=== PATIENT | male | born 1995 | race Caucasian/White ===

== ENCOUNTER 2018-11-08 01:50 | Emergency (ER) | payer MEDICAID, OTHER ==
[~2018-11-08] VITALS: Ht 182.9 cm; Wt 145.1 kg
[~2018-11-08 01:50] MED LIST: ALBU17AE26 IH
[2018-11-08 01:55] VITALS: BP_SYST 142
--- NOTE | 2018-11-08 01:55 | NUR ---
Patient to ER bed 8 to gown for evaluation. Side rails up.
--- NOTE | 2018-11-08 01:57 | NUR ---
ER at bedside examining patient.
--- NOTE | 2018-11-08 02:10 | NUR ---
XRAY PERFORMED AT THE BEDSIDE.
[2018-11-08 02:38] VITALS: BP_SYST 139
--- NOTE | 2018-11-08 02:38 | NUR ---
Patient given written and verbal discharge instructions by Dr Aguirre and verbalizes understanding. ER MD discussed with patient the results and treatment provided. Patient in stable condition. ID arm band removed. Rx of Doxycycline given. Patient educated on pain management and to follow up with PMD. Pain Scale 5/10. Opportunity for questions provided and answered. Medication side effect fact sheet provided.
== END 2018-11-08 02:38 | disposition home or self-care (01) ==
LOC: SED 01:50
DX: L73.8 Other specified follicular disorders (principal); J45.909 Unspecified asthma, uncomplicated; Z88.8 Allergy status to other drugs, medicaments and biological substances
CPT/HCPCS: 71045; 99283

== ENCOUNTER 2021-01-13 04:38 | Emergency (ER) | payer BC, OTHER ==
[~2021-01-13] VITALS: Ht 182.9 cm; Wt 145.1 kg
[2021-01-13 04:58] VITALS: BP_SYST 141
--- NOTE | 2021-01-13 05:04 | NUR ---
Patient ambulatoyr to bed 8 for evaluation
--- NOTE | 2021-01-13 05:11 | NUR ---
DR. PORTILLO AT BEDSIDE FOR EVALUATION.
--- NOTE | 2021-01-13 05:26 | NUR ---
PATIENT AAOX4 AND AMBULATORY FROM HOME C/O LEFT EAR PAIN X3 DAYS. STATED TAKING MOTHERS AMOXICILLIN AT HOME. STATED HE BOUGHT AN EAR KIT FROM THE STORE TO CLEAN EAR BUT NO EFFECTIVE. VSS. DENIES ANY HEARING LOSS.
--- NOTE | 2021-01-13 05:29 | NUR ---
LEFT EAR IRRIGATED AND NOTED DRIED WAXED REMOVED FROM CANAL. PT STATED HAVING POPPING NOISE IN EAR.
[2021-01-13] MEDS ORDERED: CIPR7.5D LEFT EAR (05:30)
[2021-01-13 05:35] VITALS: BP_SYST 141
--- NOTE | 2021-01-13 05:35 | NUR ---
Patient given written and verbal discharge instructions and verbalizes understanding. DR. BANDAR SERVIN MD discussed with patient the results and treatment provided. Patient in stable condition. ID arm band removed. Rx of CIPRODEX OTIC given. Patient educated on pain management and to follow up with PMD. Pain Scale 0/10. Opportunity for questions provided and answered. Medication side effect fact sheet provided.
== END 2021-01-13 05:35 | disposition home or self-care (01) ==
LOC: SED 04:38
DX: H61.22 Impacted cerumen, left ear (principal); J45.909 Unspecified asthma, uncomplicated; Z88.8 Allergy status to other drugs, medicaments and biological substances; Z79.899 Other long term (current) drug therapy
CPT/HCPCS: 99283

== ENCOUNTER 2022-07-27 13:38 | Inpatient (IN) | payer BC, OTHER ==
[~2022-07-27] VITALS: Ht 182.9 cm; Wt 188.7 kg
[~2022-07-27 13:38] MED LIST changes: +CIPR7.5D LEFT EAR
[2022-07-27] MEDS ORDERED: NACL 0.9% 2,000 ML IV ONE (15:00)
[2022-07-27] MEDS ORDERED: ACETAMINOPHEN 325 MG TABLET PO ONE (15:00)
[2022-07-27] MEDS ORDERED: ONDANSETRON HCL 4 MG/2 ML VIAL IVP ONE ×2 (15:00→17:00)
[2022-07-27] MEDS ORDERED: PANTOPRAZOLE SODIUM 40 MG/VIAL (PROTONIX) IVP ONE ×2 (15:00→18:45)
[2022-07-27 15:07] VITALS: BP_SYST 111
[2022-07-27 15:36] LABS: BILIRUBIN,URINE NEGATIVE (NEGATIVE); BLOOD, URINE 1+ (NEGATIVE); CLARITY/URINE CLEAR (CLEAR); COLOR,URINE YELLOW (YELLOW); GLUCOSE,URINE 3+ (NEGATIVE); KETONES,URINE 1+ (NEGATIVE); LEUKOCYTE ESTERASE ,URINE NEGATIVE (NEGATIVE); NITRITE, URINE NEGATIVE (NEGATIVE); PH,URINE 6.5 (5.0-8.0); PROTEIN URINE 1+ (NEGATIVE)
[2022-07-27 15:52] LABS: UROBILINOGEN,URINE >=8 (0.2-1.0)
[2022-07-27 15:53] LABS: BACTERIA,URINE FEW /HPF (None Seen); MUCUS,URINE None Seen /LPF (None Seen); RBC,URINE 0-3 /HPF (0-3); WBC,URINE 0-3 /HPF (0-3)
[2022-07-27 15:59] LABS: BASOPHILS # (AUTO) 0.1 K/uL (0.0-0.2); BASOPHILS % (AUTO) 0.5 % (0.0-2.0); EOSINOPHILS % (AUTO) 0.1 % (0.0-4.0); HEMATOCRIT 42.4 % (36-54); HEMOGLOBIN 14.7 g/dL (14.0-18.0); LYMPHOCYTES % (AUTO) 10.7 % (20.5-51.5); MEAN CORPUSCULAR HEMOGLOBIN 30 pg (27-31); MEAN CORPUSCULAR HGB CONC 35 % (32-36); MEAN CORPUSCULAR VOLUME 87 fL (79.0-98.0); MONOCYTES # (AUTO) 1.9 K/uL (0.0-1.0); MONOCYTES % (AUTO) 10.3 % (1.7-9.3); NEUTROPHILS # (AUTO) 14.5 K/uL (1.8-7.7); NEUTROPHILS % (AUTO) 78.4 % (40.0-70.0); PLATELET COUNT (AUTO) 179 K/uL (130-430); RED BLOOD CELL COUNT(AUTO) 4.89 MIL/uL (4.2-6.2); RED CELL DISTRIBUTION WIDTH 12.9 % (9.0-15.0); WHITE BLOOD COUNT (AUTO) 18.4 K/uL (4.8-10.8)
[2022-07-27 16:04] LABS: ANION GAP 10 (5-15); CALCIUM 7.7 mg/dL (8.4-11.0); CHLORIDE 92 mmol/L (98-107); CREATININE 1.28 mg/dL (0.55-1.30); GFR AFRICAN AMERICAN 88 mL/min (>90); GLUCOSE 380 mg/dL (70-99); UREA NITROGEN, BLOOD 10 mg/dL (8-21)
[2022-07-27 16:09] LABS: INR 1.1 (0.80-1.20); PROTHROMBIN TIME 11.4 SECS (9.5-12.5)
[2022-07-27 16:19] LABS: ALANINE AMINOTRANSFERASE 50 U/L (12-78); ALBUMIN 2.9 g/dL (3.4-4.8); ASPARTATE AMINOTRANSFERASE 29 U/L (10-37); TOTAL BILIRUBIN 1.3 mg/dL (0.0-1.0)
[2022-07-27] MEDS ORDERED: cefTRIAXone 2 GM VIAL ONE (16:57)
[2022-07-27] MEDS ORDERED: INSULIN REGULAR, HUMAN 10 UNITS/0.1 ML, 3 ML VIAL IVP ONE (17:00)
[2022-07-27] MEDS ORDERED: NACL 0.9% 1,000 ML IV ONE (17:00)
[2022-07-27] MEDS ORDERED: ASPIRIN 81 MG TABLET(ECOTRIN) PO ONE (17:00)
[2022-07-27] MEDS ORDERED: MORPHINE 2 MG/ML INJ. SYRINGE IVP ONE (17:00)
[2022-07-27] MEDS ORDERED: AZITHROMYCIN 500 MG in NS 250 ML IV ONE (17:00)
[2022-07-27] MEDS ORDERED: DEXTROSE 50% JECT 50 ML DISP.SYRIN IVP PRN (17:15)
[2022-07-27] MEDS ORDERED: ENOXAPARIN SODIUM 100 MG/ML SYRINGE SUBCUT ONE (17:30)
[2022-07-27] MEDS ORDERED: ENOXAPARIN SODIUM 120 MG/0.8 ML SYRINGE SUBCUT ONE (17:30)
[2022-07-27] MEDS ORDERED: AZITHROMYCIN 500 MG/VIAL (ZITHROMAX) IV ONE (17:31)
[2022-07-27 17:34] LABS: BARBITURATE, URINE NEGATIVE (NEG <=200); BENZODIAZEPINE, URINE NEGATIVE (NEG <=150); CANNABINOID, URINE POSITIVE (NEG <=50); COCAINE, URINE NEGATIVE (NEG <=150); METHAMPHETAMINES SCREEN,URINE NEGATIVE (NEG <=500); OPIATE, URINE NEGATIVE (NEG <=100); PHENCYCLIDINE SCREEN,URINE NEGATIVE (NEG <=25); UR TRICYCLIC ANTIDEPRESSANTS NEGATIVE (NEG <=300); URINE AMPHETAMINE NEGATIVE (NEG <=500); URINE METHADONE NEGATIVE (NEG <=200); URINE OXYCODONE SCREEN NEGATIVE (NEG <=100); URINE PROPOXYPHENE SCREEN NEGATIVE (NEG <=300)
[2022-07-27] MEDS ORDERED: PIPERACILLIN/TAZO 4.5 GM in NS 100 ML IV ONE (18:00)
[2022-07-27] MEDS ORDERED: IPRATROPIUM/ALBUTEROL SULFATE 3 ML AMPUL.NEB (DUONEB) INH PRN (18:45)
[2022-07-27] MEDS ORDERED: PIPERACILLIN/TAZOBACTAM 4.5 GM/VIAL (ZOSYN) IV ONE (18:50)
[2022-07-27] MEDS ORDERED: levalbuterol HCL 0.63 MG/3 ML VIAL.NEB INH ONE (18:57)
[2022-07-27] MEDS: IPRATROPIUM/ALBUTEROL SULFATE 3 ML AMPUL.NEB (DUONEB) INH SCH (19:00)
[2022-07-27 19:09] VITALS: BP_SYST 111
[2022-07-27] MEDS ORDERED: ACETAMINOPHEN 500 MG TABLET PO PRN (19:15)
[2022-07-27] MEDS ORDERED: NALOXONE HCL 0.4 MG/ML AMP (NARCAN) IVP PRN (19:15)
[2022-07-27] MEDS ORDERED: traMADol HCL HCL 50 MG TABLET (ULTRAM) PO PRN (19:15)
[2022-07-27] MEDS ORDERED: MORPHINE 4 MG INJ. 4 MG/ML VIAL IVP PRN (19:30)
[2022-07-27] MEDS ORDERED: ONDANSETRON HCL 4 MG/2 ML VIAL ONE (20:33)
[2022-07-27] MEDS: NACL 0.9% 1,000 ML IV SCH (20:40)
[2022-07-27] MEDS ORDERED: ONDANSETRON HCL 4 MG/2 ML VIAL IM PRN (21:00)
[2022-07-27] MEDS: INSULIN REGULAR, HUMAN 100 UNITS/ML, 3 ML VIAL (humuLIN R) SUBCUT PRN (21:19)
[2022-07-27] MEDS ORDERED: PANTOPRAZOLE SODIUM 40 MG/VIAL (PROTONIX) ONE (21:59)
[2022-07-27 22:00] VITALS: BP_SYST 113
[2022-07-27] MEDS: PANTOPRAZOLE SODIUM 40 MG in NS 50 ML IV SCH (22:14)
[2022-07-27 23:00] VITALS: BP_SYST 129
[2022-07-28] VITALS (24 sets, daily range): BP systolic 104–149
[2022-07-28] MEDS ORDERED: methylPREDNISolone SOD SUCC/PF 62.5 MG/ML VIAL IVP ONE (02:00)
[2022-07-28] MEDS ORDERED: LORazepam 2 MG/ML VIAL IM PRN (02:00)
[2022-07-28] MEDS: PANTOPRAZOLE SODIUM 40 MG in NS 50 ML IV SCH ×5 (02:06→21:05)
[2022-07-28] MEDS: NACL 0.9% 1,000 ML IV SCH ×3 (02:07→17:37)
[2022-07-28] MEDS ORDERED: PIPERACILLIN/TAZOBACTAM 4.5 GM/VIAL (ZOSYN) IV ONE (05:03)
[2022-07-28] MEDS: PIPERACILLIN/TAZO 4.5GM/DEX-IS 100 ML IV SCH ×3 (05:06→21:06)
[2022-07-28] MEDS ORDERED: ENOXAPARIN SODIUM 100 MG/ML SYRINGE SUBCUT SCH (06:00)
[2022-07-28] MEDS: INSULIN REGULAR, HUMAN 100 UNITS/ML, 3 ML VIAL (humuLIN R) SUBCUT PRN ×4 (06:58→20:52)
[2022-07-28] MEDS: IPRATROPIUM/ALBUTEROL SULFATE 3 ML AMPUL.NEB (DUONEB) INH SCH ×4 (07:04→19:17)
[2022-07-28 07:14] LABS: CALCIUM 7.4 mg/dL (8.4-11.0); CREATININE 1.28 mg/dL (0.55-1.30)
[2022-07-28 07:24] LABS: BASOPHILS % (AUTO) 0.2 % (0.0-2.0); HEMATOCRIT 42.1 % (36-54); HEMOGLOBIN 14.2 g/dL (14.0-18.0); LYMPHOCYTES # (AUTO) 0.5 K/uL (1.0-5.5); LYMPHOCYTES % (AUTO) 3.1 % (20.5-51.5); MEAN CORPUSCULAR HEMOGLOBIN 29 pg (27-31); MEAN CORPUSCULAR HGB CONC 34 % (32-36); MEAN CORPUSCULAR VOLUME 87 fL (79.0-98.0); MONOCYTES # (AUTO) 0.4 K/uL (0.0-1.0); MONOCYTES % (AUTO) 2.7 % (1.7-9.3); NEUTROPHILS # (AUTO) 15.7 K/uL (1.8-7.7); PLATELET COUNT (AUTO) 181 K/uL (130-430); RED BLOOD CELL COUNT(AUTO) 4.82 MIL/uL (4.2-6.2); RED CELL DISTRIBUTION WIDTH 12.9 % (9.0-15.0); WHITE BLOOD COUNT (AUTO) 16.8 K/uL (4.8-10.8)
[2022-07-28 07:32] LABS: ALBUMIN 2.5 g/dL (3.4-4.8); TOTAL BILIRUBIN 1.3 mg/dL (0.0-1.0)
[2022-07-28] MEDS ORDERED: PANTOPRAZOLE SODIUM 40 MG/VIAL (PROTONIX) IVP SCH (09:00)
[2022-07-28] MEDS: METHYLPREDNISOLONE SOD SUCC 40 MG/ML VIAL IVP SCH ×3 (11:50→23:40)
[2022-07-28] MEDS: AZITHROMYCIN 500 MG in NS 250 ML IV SCH (17:38)
[2022-07-29] VITALS (10 sets, daily range): BP systolic 102–146
[2022-07-29] MEDS: PANTOPRAZOLE SODIUM 40 MG in NS 50 ML IV SCH (02:33)
[2022-07-29] MEDS: NACL 0.9% 1,000 ML IV SCH (02:35)
[2022-07-29] MEDS: PIPERACILLIN/TAZO 4.5GM/DEX-IS 100 ML IV SCH ×3 (05:28→21:27)
[2022-07-29] MEDS: METHYLPREDNISOLONE SOD SUCC 40 MG/ML VIAL IVP SCH (05:29)
[2022-07-29 05:33] LABS: BASOPHILS % (AUTO) 0.1 % (0.0-2.0); HEMATOCRIT 40.9 % (36-54); HEMOGLOBIN 14.1 g/dL (14.0-18.0); LYMPHOCYTES # (AUTO) 1.3 K/uL (1.0-5.5); LYMPHOCYTES % (AUTO) 10.4 % (20.5-51.5); MEAN CORPUSCULAR HEMOGLOBIN 30 pg (27-31); MEAN CORPUSCULAR HGB CONC 35 % (32-36); MEAN CORPUSCULAR VOLUME 87 fL (79.0-98.0); MONOCYTES # (AUTO) 0.6 K/uL (0.0-1.0); MONOCYTES % (AUTO) 4.9 % (1.7-9.3); NEUTROPHILS # (AUTO) 10.8 K/uL (1.8-7.7); NEUTROPHILS % (AUTO) 84.6 % (40.0-70.0); PLATELET COUNT (AUTO) 209 K/uL (130-430); RED BLOOD CELL COUNT(AUTO) 4.68 MIL/uL (4.2-6.2); RED CELL DISTRIBUTION WIDTH 13.1 % (9.0-15.0); WHITE BLOOD COUNT (AUTO) 12.7 K/uL (4.8-10.8)
[2022-07-29 05:45] LABS: CALCIUM 8.3 mg/dL (8.4-11.0); CREATININE 1.15 mg/dL (0.55-1.30)
[2022-07-29 06:04] LABS: ALBUMIN 2.4 g/dL (3.4-4.8); TOTAL BILIRUBIN 0.7 mg/dL (0.0-1.0)
[2022-07-29] MEDS: INSULIN REGULAR, HUMAN 100 UNITS/ML, 3 ML VIAL (humuLIN R) SUBCUT PRN ×4 (06:05→21:31)
[2022-07-29] MEDS: IPRATROPIUM/ALBUTEROL SULFATE 3 ML AMPUL.NEB (DUONEB) INH SCH ×4 (07:38→19:29)
[2022-07-29] MEDS: metFORMIN HCL 500 MG TABLET PO SCH (17:34)
[2022-07-29] MEDS: AZITHROMYCIN 500 MG in NS 250 ML IV SCH (18:16)
[2022-07-29] MEDS ORDERED: CARVEDILOL 6.25 MG TABLET (COREG) PO SCH (21:00)
[2022-07-29] MEDS: PANTOPRAZOLE SODIUM 40 MG/VIAL (PROTONIX) IVP SCH (21:26)
[2022-07-30 00:11] VITALS: BP_SYST 122
[2022-07-30] MEDS: PIPERACILLIN/TAZO 4.5GM/DEX-IS 100 ML IV SCH ×3 (05:46→21:21)
[2022-07-30 06:50] LABS: BASOPHILS % (AUTO) 0.1 % (0.0-2.0); EOSINOPHILS % (AUTO) 0.1 % (0.0-4.0); HEMOGLOBIN 13.6 g/dL (14.0-18.0); LYMPHOCYTES # (AUTO) 3.4 K/uL (1.0-5.5); MEAN CORPUSCULAR HEMOGLOBIN 30 pg (27-31); MEAN CORPUSCULAR HGB CONC 34 % (32-36); MEAN CORPUSCULAR VOLUME 87 fL (79.0-98.0); MONOCYTES # (AUTO) 0.9 K/uL (0.0-1.0); MONOCYTES % (AUTO) 5.4 % (1.7-9.3); NEUTROPHILS # (AUTO) 12.5 K/uL (1.8-7.7); NEUTROPHILS % (AUTO) 74.4 % (40.0-70.0); PLATELET COUNT (AUTO) 259 K/uL (130-430); RED BLOOD CELL COUNT(AUTO) 4.58 MIL/uL (4.2-6.2); WHITE BLOOD COUNT (AUTO) 16.8 K/uL (4.8-10.8)
[2022-07-30] MEDS: INSULIN REGULAR, HUMAN 100 UNITS/ML, 3 ML VIAL (humuLIN R) SUBCUT PRN ×4 (06:57→21:35)
[2022-07-30 07:25] LABS: ALBUMIN 2.3 g/dL (3.4-4.8); CALCIUM 7.9 mg/dL (8.4-11.0); CREATININE 1.26 mg/dL (0.55-1.30); FREE T4 (FREE THYROXINE) 1.2 ng/dL (0.6-1.6); THYROID STIMULATING HORMONE 2.74 uIu/mL (0.34-4.82); TOTAL BILIRUBIN 0.6 mg/dL (0.0-1.0)
[2022-07-30] MEDS: IPRATROPIUM/ALBUTEROL SULFATE 3 ML AMPUL.NEB (DUONEB) INH SCH ×4 (07:27→19:38)
[2022-07-30 08:00] VITALS: BP_SYST 111
[2022-07-30] MEDS ORDERED: PANTOPRAZOLE SODIUM 40 MG/VIAL (PROTONIX) IVP SCH (09:00)
[2022-07-30] MEDS ORDERED: LOSARTAN POTASSIUM 25 MG TABLET PO SCH (09:00)
[2022-07-30] MEDS: metFORMIN HCL 500 MG TABLET PO SCH ×2 (09:03→17:07)
[2022-07-30] MEDS: PANTOPRAZOLE SODIUM 40 MG/VIAL (PROTONIX) IVP SCH ×2 (09:29→21:26)
[2022-07-30 11:38] VITALS: BP_SYST 101
[2022-07-30] MEDS: FLUCONAZOLE 200 mg/ NS 100 ML IV SCH (12:56)
[2022-07-30 15:16] VITALS: BP_SYST 111
[2022-07-30] MEDS ORDERED: PNEUMOCOCCAL 23-VAL P-SAC VAC 0.5 ML VIAL I.M. ONE (17:45)
[2022-07-30] MEDS: AZITHROMYCIN 500 MG in NS 250 ML IV SCH (18:05)
[2022-07-30 20:06] LABS: MYCOPLASMA PNEUMONIAE IgM <770 U/mL (0-769)
[2022-07-30 20:15] VITALS: BP_SYST 115
[2022-07-30] MEDS: NACL 0.9% 1,000 ML IV SCH (21:27)
[2022-07-31 02:07] VITALS: BP_SYST 98
[2022-07-31] MEDS: PIPERACILLIN/TAZO 4.5GM/DEX-IS 100 ML IV SCH ×3 (05:18→23:15)
[2022-07-31] MEDS: NACL 0.9% 1,000 ML IV SCH ×2 (06:02→15:15)
[2022-07-31] MEDS: metFORMIN HCL 500 MG TABLET PO SCH ×3 (06:33→17:21)
[2022-07-31] MEDS: INSULIN REGULAR, HUMAN 100 UNITS/ML, 3 ML VIAL (humuLIN R) SUBCUT PRN ×4 (06:33→22:01)
[2022-07-31] MEDS: IPRATROPIUM/ALBUTEROL SULFATE 3 ML AMPUL.NEB (DUONEB) INH SCH ×4 (07:22→19:24)
[2022-07-31 08:00] VITALS: BP_SYST 100
[2022-07-31 08:06] LABS: BASOPHILS % (AUTO) 0.3 % (0.0-2.0); EOSINOPHILS # (AUTO) 0.2 K/uL (0.0-0.4); EOSINOPHILS % (AUTO) 1.6 % (0.0-4.0); HEMATOCRIT 41.2 % (36-54); HEMOGLOBIN 14.1 g/dL (14.0-18.0); LYMPHOCYTES % (AUTO) 28.2 % (20.5-51.5); MEAN CORPUSCULAR HEMOGLOBIN 30 pg (27-31); MEAN CORPUSCULAR HGB CONC 34 % (32-36); MEAN CORPUSCULAR VOLUME 87 fL (79.0-98.0); MONOCYTES # (AUTO) 0.7 K/uL (0.0-1.0); NEUTROPHILS # (AUTO) 9.2 K/uL (1.8-7.7); NEUTROPHILS % (AUTO) 64.9 % (40.0-70.0); PLATELET COUNT (AUTO) 257 K/uL (130-430); RED BLOOD CELL COUNT(AUTO) 4.71 MIL/uL (4.2-6.2); RED CELL DISTRIBUTION WIDTH 12.9 % (9.0-15.0); WHITE BLOOD COUNT (AUTO) 14.1 K/uL (4.8-10.8)
[2022-07-31 08:11] LABS: CALCIUM 7.6 mg/dL (8.4-11.0); CREATININE 1.06 mg/dL (0.55-1.30)
[2022-07-31] MEDS: PANTOPRAZOLE SODIUM 40 MG/VIAL (PROTONIX) IVP SCH ×2 (08:58→21:52)
[2022-07-31] MEDS ORDERED: PNEUMOCOCCAL 23-VAL P-SAC VAC 0.5 ML VIAL I.M. ONE (10:00)
[2022-07-31 13:09] VITALS: BP_SYST 111
[2022-07-31 18:06] LABS: COCCIDIOIDES AB IGG 0.2 IV (<=0.9); COCCIDIOIDES AB IGM 0.4 IV (<=0.9)
[2022-07-31 18:19] VITALS: BP_SYST 111
[2022-07-31 19:40] VITALS: BP_SYST 126
[2022-07-31] MEDS: FLUCONAZOLE 200 mg/ NS 100 ML IV SCH (21:52)
[2022-08-01] MEDS: AZITHROMYCIN 500 MG in NS 250 ML IV SCH ×2 (00:01→17:04)
[2022-08-01 00:30] VITALS: BP_SYST 117
[2022-08-01] MEDS: PIPERACILLIN/TAZO 4.5GM/DEX-IS 100 ML IV SCH ×3 (05:40→21:50)
[2022-08-01] MEDS: NACL 0.9% 1,000 ML IV SCH (05:41)
[2022-08-01] MEDS: INSULIN REGULAR, HUMAN 100 UNITS/ML, 3 ML VIAL (humuLIN R) SUBCUT PRN ×4 (05:50→21:55)
[2022-08-01] MEDS: metFORMIN HCL 500 MG TABLET PO SCH ×3 (06:13→17:10)
[2022-08-01 08:00] VITALS: BP_SYST 114
[2022-08-01] MEDS: IPRATROPIUM/ALBUTEROL SULFATE 3 ML AMPUL.NEB (DUONEB) INH SCH ×4 (08:21→19:00)
[2022-08-01] MEDS: PANTOPRAZOLE SODIUM 40 MG TAB PO SCH (09:20)
[2022-08-01 11:29] VITALS: BP_SYST 122
[2022-08-01] MEDS: FLUCONAZOLE 200 mg/ NS 100 ML IV SCH (12:22)
[2022-08-01 15:48] VITALS: BP_SYST 128
[2022-08-01 19:00] VITALS: BP_SYST 141
[2022-08-01 20:00] VITALS: BP_SYST 141
[2022-08-02] VITALS: BP_SYST 140
[2022-08-02] MEDS: PIPERACILLIN/TAZO 4.5GM/DEX-IS 100 ML IV SCH (05:57)
[2022-08-02] MEDS: metFORMIN HCL 500 MG TABLET PO SCH ×2 (06:10→12:54)
[2022-08-02] MEDS: INSULIN REGULAR, HUMAN 100 UNITS/ML, 3 ML VIAL (humuLIN R) SUBCUT PRN ×2 (06:17→12:58)
[2022-08-02] MEDS: IPRATROPIUM/ALBUTEROL SULFATE 3 ML AMPUL.NEB (DUONEB) INH SCH ×2 (07:57→11:00)
[2022-08-02 08:02] VITALS: BP_SYST 103
[2022-08-02] MEDS: PANTOPRAZOLE SODIUM 40 MG TAB PO SCH (09:04)
[2022-08-02 11:18] VITALS: BP_SYST 108
[2022-08-02] MEDS ORDERED: METF-381 PO (12:42)
[2022-08-02] MEDS ORDERED: ZIT250 PO (12:42)
[2022-08-02] MEDS ORDERED: AZITHROMYCIN 250 MG TABLET PO ONE (12:45)
[2022-08-02 14:21] VITALS: BP_SYST 108
[2022-08-02] MEDS ORDERED: MULT-1117 PO (14:36)
[2022-08-03] MEDS ORDERED: AZITHROMYCIN 250 MG TABLET PO SCH (09:00)
== END 2022-08-02 15:10 | disposition home or self-care (01) | DRG 720 ==
LOC: SED 13:38 → SIC 17:04 → STU 07-29 10:33
PROVIDERS: ADMIT Internal Medicine; ATTEND Internal Medicine
PROC: 5A09357 Assistance with Respiratory Ventilation, Less than 24 Consecutive Hours, Continuous Positive Airway Pressure (ICD-10-PCS; principal; 2022-07-28)
PROC: 5A09357 Assistance with Respiratory Ventilation, Less than 24 Consecutive Hours, Continuous Positive Airway Pressure (ICD-10-PCS; 2022-07-29)
DX: A41.9 Sepsis, unspecified organism (principal); J96.01 Acute respiratory failure with hypoxia; N17.0 Acute kidney failure with tubular necrosis; E43 Unspecified severe protein-calorie malnutrition; J15.6 Pneumonia due to other Gram-negative bacteria; I21.A1 Myocardial infarction type 2; E87.1 Hypo-osmolality and hyponatremia; K92.0 Hematemesis; J45.901 Unspecified asthma with (acute) exacerbation; Z20.822 Contact with and (suspected) exposure to COVID-19; F17.200 Nicotine dependence, unspecified, uncomplicated; E66.01 Morbid (severe) obesity due to excess calories; R65.20 Severe sepsis without septic shock; E11.65 Type 2 diabetes mellitus with hyperglycemia; Z68.43 Body mass index [BMI] 50.0-59.9, adult; Z86.16 Personal history of COVID-19
CPT/HCPCS: 36415; 36600; 71045; 80048; 80053; 80061; 80307; 81000; 82803; 82962; 83037; 83605; 83735; 83880; 84439; 84443; 84484; 85025; 85610-TC; 85730-TC; 86635; 86738; 87040; 87070-TC; 87081; 87086; 87205-TC; 87449; 90732; 93005; 93306; 94640; 94660; 94760; 96374; 96375; 97110-GP; 97112-GP; 97116-GP; 97530-GP; 99291; C9113; G0378; J0456; J0696; J1030; J1450; J1650; J1815; J2060; J2270; J2405; J2543; J2930; J7050; J7614; Q0144

== ENCOUNTER 2022-08-17 07:54 | Inpatient (IN) | payer OTHER ==
[2022-08-17] VITALS (14 sets, daily range): BP systolic 94–122; PULSE 104–126; RESP 18–24; TEMP 97.2–98.9; O2SAT 92–98
[~2022-08-17] VITALS: Ht 182.9 cm; Wt 181.4 kg
[~2022-08-17 07:54] MED LIST changes: -CIPR7.5D LEFT EAR; +METF-381 PO; +MULT-1117 PO; +ZIT250 PO
[2022-08-17] MEDS ORDERED: NACL 0.9% 1,000 ML IV ONE ×3 (08:15→11:15)
[2022-08-17 08:56] LABS: BASOPHILS # (AUTO) 0.1 K/uL (0.0-0.2); BASOPHILS % (AUTO) 0.5 % (0.0-2.0); EOSINOPHILS # (AUTO) 0.2 K/uL (0.0-0.4); EOSINOPHILS % (AUTO) 1.3 % (0.0-4.0); HEMATOCRIT 42.5 % (36-54); HEMOGLOBIN 14.2 g/dL (14.0-18.0); LYMPHOCYTES # (AUTO) 2.7 K/uL (1.0-5.5); LYMPHOCYTES % (AUTO) 16.6 % (20.5-51.5); MEAN CORPUSCULAR HEMOGLOBIN 29 pg (27-31); MEAN CORPUSCULAR HGB CONC 34 % (32-36); MEAN CORPUSCULAR VOLUME 88 fL (79.0-98.0); MONOCYTES # (AUTO) 1.3 K/uL (0.0-1.0); MONOCYTES % (AUTO) 7.7 % (1.7-9.3); NEUTROPHILS % (AUTO) 73.9 % (40.0-70.0); PLATELET COUNT (AUTO) 262 K/uL (130-430); RED BLOOD CELL COUNT(AUTO) 4.85 MIL/uL (4.2-6.2); RED CELL DISTRIBUTION WIDTH 13.6 % (9.0-15.0); WHITE BLOOD COUNT (AUTO) 16.3 K/uL (4.8-10.8)
[2022-08-17] MEDS ORDERED: FAMO20TA8 PO (09:00)
[2022-08-17 09:05] LABS: ANION GAP 10 (5-15); CALCIUM 8.4 mg/dL (8.4-11.0); CHLORIDE 100 mmol/L (98-107); CREATININE 1.11 mg/dL (0.55-1.30); GFR AFRICAN AMERICAN 104 mL/min (>90); GLUCOSE 272 mg/dL (74-106); UREA NITROGEN, BLOOD 14 mg/dL (8-21)
[2022-08-17 09:19] LABS: ALANINE AMINOTRANSFERASE 48 U/L (12-78); ALBUMIN 3.1 g/dL (3.4-4.8); ASPARTATE AMINOTRANSFERASE 28 U/L (10-37)
[2022-08-17] MEDS ORDERED: iohexoL 350 mgI/mL, 100 ML INFUS..BTL IV ONE (09:19)
[2022-08-17 09:20] LABS: PROTHROMBIN TIME 10.6 SECS (9.5-12.5)
[2022-08-17 09:58] LABS: CREATINE KINASE MB 5.2 ng/mL (0-3.6)
[2022-08-17] MEDS ORDERED: IPRATROPIUM/ALBUTEROL SULFATE 3 ML AMPUL.NEB (DUONEB) ONE (13:16)
[2022-08-17] MEDS: PIPERACILLIN/TAZO 4.5GM/DEX-IS 100 ML IV SCH ×2 (13:40→22:00)
[2022-08-17] MEDS: IPRATROPIUM/ALBUTEROL SULFATE 3 ML AMPUL.NEB (DUONEB) INH SCH ×3 (13:55→23:26)
[2022-08-17] MEDS ORDERED: DEXTROSE 50% JECT 50 ML DISP.SYRIN IVP PRN (14:15)
[2022-08-17] MEDS ORDERED: D5W 1,000 ML IV PRN (14:15)
[2022-08-17] MEDS ORDERED: GLUCOSE (DEXTROSE) ORAL GEL -Adults PO PRN (14:15)
[2022-08-17] MEDS ORDERED: INSULIN REGULAR, HUMAN 10 UNITS/0.1 ML, 3 ML VIAL ONE (14:19)
[2022-08-17] MEDS: INSULIN REGULAR, HUMAN 100 UNITS/ML, 3 ML VIAL (humuLIN R) SUBCUT PRN ×3 (14:25→21:26)
[2022-08-17 15:24] LABS: BARBITURATE, URINE NEGATIVE (NEG <=200); BENZODIAZEPINE, URINE NEGATIVE (NEG <=150); CANNABINOID, URINE POSITIVE (NEG <=50); COCAINE, URINE NEGATIVE (NEG <=150); METHAMPHETAMINES SCREEN,URINE NEGATIVE (NEG <=500); OPIATE, URINE POSITIVE (NEG <=100); PHENCYCLIDINE SCREEN,URINE NEGATIVE (NEG <=25); UR TRICYCLIC ANTIDEPRESSANTS NEGATIVE (NEG <=300); URINE AMPHETAMINE NEGATIVE (NEG <=500); URINE METHADONE NEGATIVE (NEG <=200); URINE OXYCODONE SCREEN NEGATIVE (NEG <=100); URINE PROPOXYPHENE SCREEN NEGATIVE (NEG <=300)
[2022-08-17] MEDS ORDERED: methylPREDNISolone SOD SUCC/PF 62.5 MG/ML VIAL IVP ONE (15:45)
[2022-08-17] MEDS ORDERED: ONDANSETRON HCL 4 MG/2 ML VIAL IVP PRN ×2 (16:45→23:00)
[2022-08-17] MEDS ORDERED: KETOROLAC TROMETHAMINE 30 MG VIAL IVP PRN (17:00)
[2022-08-17] MEDS ORDERED: KETOROLAC TROMETHAMINE 15 MG VIAL ONE (17:03)
[2022-08-17] MEDS: IPRATROPIUM BROM 0.5 MG/2.5 ML VIAL.NEB (ATROVENT) INH PRN (17:12)
[2022-08-17] MEDS: ALBUTEROL SULFATE 0.083% 2.5 MG/3 ML VIAL.NEB INH PRN (17:12)
[2022-08-17] MEDS ORDERED: KETOROLAC TROMETHAMINE 15 MG VIAL IVP PRN ×2 (17:15)
[2022-08-17] MEDS: NACL 0.9% 1,000 ML IV SCH (19:33)
[2022-08-17 19:44] LABS: BASOPHILS % (AUTO) 0.3 % (0.0-2.0); EOSINOPHILS # (AUTO) 0.1 K/uL (0.0-0.4); EOSINOPHILS % (AUTO) 0.3 % (0.0-4.0); HEMATOCRIT 41.5 % (36-54); HEMOGLOBIN 13.8 g/dL (14.0-18.0); LYMPHOCYTES % (AUTO) 6.1 % (20.5-51.5); MEAN CORPUSCULAR HEMOGLOBIN 29 pg (27-31); MEAN CORPUSCULAR HGB CONC 33 % (32-36); MEAN CORPUSCULAR VOLUME 88 fL (79.0-98.0); MONOCYTES # (AUTO) 0.4 K/uL (0.0-1.0); MONOCYTES % (AUTO) 2.2 % (1.7-9.3); NEUTROPHILS # (AUTO) 14.5 K/uL (1.8-7.7); NEUTROPHILS % (AUTO) 91.1 % (40.0-70.0); PLATELET COUNT (AUTO) 225 K/uL (130-430); RED BLOOD CELL COUNT(AUTO) 4.69 MIL/uL (4.2-6.2); RED CELL DISTRIBUTION WIDTH 13.9 % (9.0-15.0)
[2022-08-17 20:16] LABS: ALBUMIN 2.9 g/dL (3.4-4.8); CALCIUM 7.9 mg/dL (8.4-11.0); CREATININE 1.14 mg/dL (0.55-1.30); PHOSPHORUS 3.6 mg/dL (2.7-4.5); TOTAL BILIRUBIN 1.3 mg/dL (0.0-1.0)
[2022-08-17] MEDS ORDERED: methylPREDNISolone SOD SUCC/PF 62.5 MG/ML VIAL IVP SCH (21:00)
[2022-08-18] VITALS (29 sets, daily range): BP systolic 115–155; PULSE 79–133; RESP 13–46; TEMP 97–98.5; O2SAT 90–98
[2022-08-18] MEDS: IPRATROPIUM/ALBUTEROL SULFATE 3 ML AMPUL.NEB (DUONEB) INH SCH ×6 (02:45→23:28)
[2022-08-18 04:41] LABS: BASOPHILS % (AUTO) 0.1 % (0.0-2.0); HEMATOCRIT 38.8 % (36-54); HEMOGLOBIN 12.8 g/dL (14.0-18.0); LYMPHOCYTES # (AUTO) 0.6 K/uL (1.0-5.5); LYMPHOCYTES % (AUTO) 6.5 % (20.5-51.5); MEAN CORPUSCULAR HEMOGLOBIN 29 pg (27-31); MEAN CORPUSCULAR HGB CONC 33 % (32-36); MEAN CORPUSCULAR VOLUME 89 fL (79.0-98.0); MONOCYTES # (AUTO) 0.1 K/uL (0.0-1.0); NEUTROPHILS # (AUTO) 8.9 K/uL (1.8-7.7); NEUTROPHILS % (AUTO) 92.4 % (40.0-70.0); PLATELET COUNT (AUTO) 212 K/uL (130-430); RED BLOOD CELL COUNT(AUTO) 4.36 MIL/uL (4.2-6.2); RED CELL DISTRIBUTION WIDTH 13.8 % (9.0-15.0); WHITE BLOOD COUNT (AUTO) 9.7 K/uL (4.8-10.8)
[2022-08-18] MEDS: PIPERACILLIN/TAZO 4.5GM/DEX-IS 100 ML IV SCH ×3 (05:06→20:27)
[2022-08-18 05:07] LABS: ALBUMIN 2.5 g/dL (3.4-4.8); CALCIUM 7.1 mg/dL (8.4-11.0); CREATININE 0.86 mg/dL (0.55-1.30); PHOSPHORUS 3.7 mg/dL (2.7-4.5); TOTAL BILIRUBIN 0.8 mg/dL (0.0-1.0)
[2022-08-18] MEDS: INSULIN REGULAR, HUMAN 100 UNITS/ML, 3 ML VIAL (humuLIN R) SUBCUT PRN ×4 (05:53→22:18)
[2022-08-18] MEDS: MULTIVITAMINS TAB 1 TABLET PO SCH (08:19)
[2022-08-18] MEDS: metFORMIN HCL 500 MG TABLET PO SCH ×2 (08:19→17:02)
[2022-08-18] MEDS: FAMOTIDINE 20 MG TABLET PO SCH ×2 (08:19→20:26)
[2022-08-18] MEDS: ENOXAPARIN SODIUM 40 MG/0.4 ML SYRINGE SUBCUT SCH (08:20)
[2022-08-18] MEDS: NACL 0.9% 1,000 ML IV SCH (08:32)
[2022-08-18] MEDS ORDERED: methylPREDNISolone SOD SUCC/PF 62.5 MG/ML VIAL IVP ONE (09:20)
[2022-08-18] MEDS ORDERED: methylPREDNISolone SOD SUCC/PF 62.5 MG/ML VIAL IVP SCH (09:30)
[2022-08-18] MEDS: IPRATROPIUM BROM 0.5 MG/2.5 ML VIAL.NEB (ATROVENT) INH PRN (12:50)
[2022-08-18] MEDS: methylPREDNISolone SOD SUCC/PF 62.5 MG/ML VIAL IVP SCH (20:25)
[2022-08-18] MEDS: LACTOBACILLUS RHAMNOSUS GG 1 CAP CAPSULE PO SCH (20:26)
[2022-08-19] VITALS (24 sets, daily range): BP systolic 109–164; PULSE 110–125; RESP 18–42; TEMP 96.6–98.7; O2SAT 90–99
[2022-08-19] MEDS: NACL 0.9% 1,000 ML IV SCH (02:28)
[2022-08-19] MEDS: IPRATROPIUM/ALBUTEROL SULFATE 3 ML AMPUL.NEB (DUONEB) INH SCH ×4 (02:35→15:53)
[2022-08-19] MEDS: INSULIN REGULAR, HUMAN 100 UNITS/ML, 3 ML VIAL (humuLIN R) SUBCUT PRN ×5 (05:36→21:38)
[2022-08-19 05:53] LABS: HEMATOCRIT 37.9 % (36-54); HEMOGLOBIN 12.3 g/dL (14.0-18.0); LYMPHOCYTES # (AUTO) 1.1 K/uL (1.0-5.5); LYMPHOCYTES % (AUTO) 6.6 % (20.5-51.5); MEAN CORPUSCULAR HEMOGLOBIN 29 pg (27-31); MEAN CORPUSCULAR HGB CONC 32 % (32-36); MEAN CORPUSCULAR VOLUME 90 fL (79.0-98.0); MONOCYTES # (AUTO) 0.5 K/uL (0.0-1.0); MONOCYTES % (AUTO) 3.1 % (1.7-9.3); NEUTROPHILS # (AUTO) 14.4 K/uL (1.8-7.7); NEUTROPHILS % (AUTO) 90.3 % (40.0-70.0); PLATELET COUNT (AUTO) 235 K/uL (130-430); RED BLOOD CELL COUNT(AUTO) 4.22 MIL/uL (4.2-6.2); WHITE BLOOD COUNT (AUTO) 15.9 K/uL (4.8-10.8)
[2022-08-19 06:46] LABS: ALBUMIN 2.7 g/dL (3.4-4.8); CREATININE 1.09 mg/dL (0.55-1.30); THYROID STIMULATING HORMONE 0.62 uIu/mL (0.34-4.82); TOTAL BILIRUBIN 0.4 mg/dL (0.0-1.0)
[2022-08-19] MEDS: metFORMIN HCL 500 MG TABLET PO SCH ×2 (08:15→17:28)
[2022-08-19] MEDS: PIPERACILLIN/TAZO 4.5GM/DEX-IS 100 ML IV SCH ×3 (08:15→21:29)
[2022-08-19] MEDS: methylPREDNISolone SOD SUCC/PF 62.5 MG/ML VIAL IVP SCH ×2 (08:16→21:31)
[2022-08-19] MEDS: MULTIVITAMINS TAB 1 TABLET PO SCH (08:21)
[2022-08-19] MEDS: LACTOBACILLUS RHAMNOSUS GG 1 CAP CAPSULE PO SCH ×2 (08:21→21:29)
[2022-08-19] MEDS: FAMOTIDINE 20 MG TABLET PO SCH ×2 (08:22→21:29)
[2022-08-19] MEDS: ENOXAPARIN SODIUM 40 MG/0.4 ML SYRINGE SUBCUT SCH (08:24)
[2022-08-19 08:48] LABS: ERYTHROCYTE SEDIMENTATION RATE 31 MM/HR (0-15)
[2022-08-19] MEDS: ALBUTEROL SULFATE 0.083% 2.5 MG/3 ML VIAL.NEB INH PRN (15:48)
[2022-08-20] VITALS (13 sets, daily range): BP systolic 131–156; PULSE 111–118; RESP 18–26; TEMP 96.4–97.3; O2SAT 94–99
[2022-08-20] MEDS: PIPERACILLIN/TAZO 4.5GM/DEX-IS 100 ML IV SCH ×3 (05:06→21:07)
[2022-08-20] MEDS: INSULIN REGULAR, HUMAN 100 UNITS/ML, 3 ML VIAL (humuLIN R) SUBCUT PRN ×4 (06:05→21:23)
[2022-08-20 07:07] LABS: BASOPHILS # (AUTO) 0.1 K/uL (0.0-0.2); BASOPHILS % (AUTO) 0.4 % (0.0-2.0); EOSINOPHILS % (AUTO) 0.1 % (0.0-4.0); HEMATOCRIT 40.5 % (36-54); HEMOGLOBIN 13.4 g/dL (14.0-18.0); LYMPHOCYTES # (AUTO) 1.1 K/uL (1.0-5.5); LYMPHOCYTES % (AUTO) 6.4 % (20.5-51.5); MEAN CORPUSCULAR HEMOGLOBIN 29 pg (27-31); MEAN CORPUSCULAR HGB CONC 33 % (32-36); MEAN CORPUSCULAR VOLUME 89 fL (79.0-98.0); MONOCYTES # (AUTO) 0.6 K/uL (0.0-1.0); MONOCYTES % (AUTO) 3.3 % (1.7-9.3); NEUTROPHILS % (AUTO) 89.8 % (40.0-70.0); PLATELET COUNT (AUTO) 297 K/uL (130-430); RED BLOOD CELL COUNT(AUTO) 4.58 MIL/uL (4.2-6.2); WHITE BLOOD COUNT (AUTO) 17.8 K/uL (4.8-10.8)
[2022-08-20 07:25] LABS: ERYTHROCYTE SEDIMENTATION RATE 22 MM/HR (0-15)
[2022-08-20 07:29] LABS: CALCIUM 8.6 mg/dL (8.4-11.0); CREATININE 1.17 mg/dL (0.55-1.30)
[2022-08-20] MEDS: LACTOBACILLUS RHAMNOSUS GG 1 CAP CAPSULE PO SCH ×2 (08:44→21:07)
[2022-08-20] MEDS: FAMOTIDINE 20 MG TABLET PO SCH ×2 (08:45→21:07)
[2022-08-20] MEDS: MULTIVITAMINS TAB 1 TABLET PO SCH (08:45)
[2022-08-20] MEDS: ENOXAPARIN SODIUM 40 MG/0.4 ML SYRINGE SUBCUT SCH (08:45)
[2022-08-20] MEDS: metFORMIN HCL 500 MG TABLET PO SCH ×2 (08:45→17:16)
[2022-08-20] MEDS: methylPREDNISolone SOD SUCC/PF 62.5 MG/ML VIAL IVP SCH ×2 (08:45→21:07)
[2022-08-20] MEDS: IPRATROPIUM/ALBUTEROL SULFATE 3 ML AMPUL.NEB (DUONEB) INH SCH ×5 (08:47→23:39)
[2022-08-21] VITALS (11 sets, daily range): BP systolic 126–136; PULSE 104–116; RESP 16–20; TEMP 96.9–98.1; O2SAT 94–99
[2022-08-21] MEDS: IPRATROPIUM/ALBUTEROL SULFATE 3 ML AMPUL.NEB (DUONEB) INH SCH ×6 (03:00→23:45)
[2022-08-21] MEDS: PIPERACILLIN/TAZO 4.5GM/DEX-IS 100 ML IV SCH ×3 (06:01→21:53)
[2022-08-21] MEDS: INSULIN REGULAR, HUMAN 100 UNITS/ML, 3 ML VIAL (humuLIN R) SUBCUT PRN ×4 (06:04→22:07)
[2022-08-21 06:22] LABS: BASOPHILS # (AUTO) 0.1 K/uL (0.0-0.2); BASOPHILS % (AUTO) 0.8 % (0.0-2.0); EOSINOPHILS % (AUTO) 0.1 % (0.0-4.0); HEMATOCRIT 40.5 % (36-54); HEMOGLOBIN 13.1 g/dL (14.0-18.0); LYMPHOCYTES % (AUTO) 12.8 % (20.5-51.5); MEAN CORPUSCULAR HEMOGLOBIN 29 pg (27-31); MEAN CORPUSCULAR HGB CONC 33 % (32-36); MEAN CORPUSCULAR VOLUME 89 fL (79.0-98.0); MONOCYTES # (AUTO) 1.1 K/uL (0.0-1.0); MONOCYTES % (AUTO) 6.8 % (1.7-9.3); NEUTROPHILS # (AUTO) 12.5 K/uL (1.8-7.7); NEUTROPHILS % (AUTO) 79.5 % (40.0-70.0); PLATELET COUNT (AUTO) 258 K/uL (130-430); RED BLOOD CELL COUNT(AUTO) 4.56 MIL/uL (4.2-6.2); RED CELL DISTRIBUTION WIDTH 13.8 % (9.0-15.0); WHITE BLOOD COUNT (AUTO) 15.7 K/uL (4.8-10.8)
[2022-08-21 06:38] LABS: CREATININE 1.02 mg/dL (0.55-1.30)
[2022-08-21 06:39] LABS: ERYTHROCYTE SEDIMENTATION RATE 17 MM/HR (0-15)
[2022-08-21 08:07] LABS: IMMUNOGLOBULIN E,TOTAL 35 IU/mL (6-495)
[2022-08-21] MEDS: FAMOTIDINE 20 MG TABLET PO SCH ×2 (09:09→21:53)
[2022-08-21] MEDS: MULTIVITAMINS TAB 1 TABLET PO SCH (09:10)
[2022-08-21] MEDS: LACTOBACILLUS RHAMNOSUS GG 1 CAP CAPSULE PO SCH ×2 (09:10→21:53)
[2022-08-21] MEDS: metFORMIN HCL 500 MG TABLET PO SCH ×2 (09:11→17:56)
[2022-08-21] MEDS: ENOXAPARIN SODIUM 40 MG/0.4 ML SYRINGE SUBCUT SCH (09:11)
[2022-08-21] MEDS: methylPREDNISolone SOD SUCC/PF 62.5 MG/ML VIAL IVP SCH (09:16)
[2022-08-21] MEDS: ALBUTEROL SULFATE 0.083% 2.5 MG/3 ML VIAL.NEB INH PRN (20:56)
[2022-08-22] VITALS (7 sets, daily range): BP systolic 122–141; PULSE 108–112; RESP 16–20; TEMP 96.3–97.7; O2SAT 87–98
[2022-08-22] MEDS: IPRATROPIUM/ALBUTEROL SULFATE 3 ML AMPUL.NEB (DUONEB) INH SCH ×3 (03:00→11:46)
[2022-08-22 05:11] LABS: BASOPHILS % (AUTO) 0.1 % (0.0-2.0); EOSINOPHILS # (AUTO) 0.1 K/uL (0.0-0.4); EOSINOPHILS % (AUTO) 0.6 % (0.0-4.0); HEMATOCRIT 41.2 % (36-54); HEMOGLOBIN 13.3 g/dL (14.0-18.0); LYMPHOCYTES # (AUTO) 4.1 K/uL (1.0-5.5); LYMPHOCYTES % (AUTO) 23.2 % (20.5-51.5); MEAN CORPUSCULAR HEMOGLOBIN 29 pg (27-31); MEAN CORPUSCULAR HGB CONC 32 % (32-36); MEAN CORPUSCULAR VOLUME 89 fL (79.0-98.0); MONOCYTES # (AUTO) 1.6 K/uL (0.0-1.0); MONOCYTES % (AUTO) 9.1 % (1.7-9.3); PLATELET COUNT (AUTO) 261 K/uL (130-430); RED BLOOD CELL COUNT(AUTO) 4.63 MIL/uL (4.2-6.2); RED CELL DISTRIBUTION WIDTH 13.9 % (9.0-15.0); WHITE BLOOD COUNT (AUTO) 17.8 K/uL (4.8-10.8)
[2022-08-22 05:14] LABS: ERYTHROCYTE SEDIMENTATION RATE 10 MM/HR (0-15)
[2022-08-22 05:17] LABS: CALCIUM 7.9 mg/dL (8.4-11.0); CREATININE 1.3 mg/dL (0.55-1.30)
[2022-08-22] MEDS: PIPERACILLIN/TAZO 4.5GM/DEX-IS 100 ML IV SCH (06:41)
[2022-08-22] MEDS: INSULIN REGULAR, HUMAN 100 UNITS/ML, 3 ML VIAL (humuLIN R) SUBCUT PRN (06:46)
[2022-08-22] MEDS: metFORMIN HCL 500 MG TABLET PO SCH (08:39)
[2022-08-22] MEDS: LACTOBACILLUS RHAMNOSUS GG 1 CAP CAPSULE PO SCH (08:40)
[2022-08-22] MEDS: FAMOTIDINE 20 MG TABLET PO SCH (08:40)
[2022-08-22] MEDS: ENOXAPARIN SODIUM 40 MG/0.4 ML SYRINGE SUBCUT SCH (08:41)
[2022-08-22] MEDS: MULTIVITAMINS TAB 1 TABLET PO SCH (08:41)
[2022-08-22] MEDS ORDERED: LEVO-62 PO (10:20)
[2022-08-22] MEDS ORDERED: ALBMDI INH (10:20)
[2022-08-22] MEDS ORDERED: ACETAMINOPHEN 325 MG TABLET PO PRN (11:45)
== END 2022-08-22 12:40 | disposition home or self-care (01) | DRG 720 ==
LOC: SED 07:54 → STU 10:14 → SIC 15:50 → STU 08-19 18:46 → SMU 08-22 11:23
PROVIDERS: ADMIT Preventive Medicine Preventive Medicine/Occupational Environmental Medicine; ATTEND Preventive Medicine Preventive Medicine/Occupational Environmental Medicine
DX: A41.9 Sepsis, unspecified organism (principal); J96.01 Acute respiratory failure with hypoxia; A48.1 Legionnaires' disease; I50.43 Acute on chronic combined systolic (congestive) and diastolic (congestive) heart failure; E43 Unspecified severe protein-calorie malnutrition; J18.9 Pneumonia, unspecified organism; E87.1 Hypo-osmolality and hyponatremia; E83.51 Hypocalcemia; E88.09 Other disorders of plasma-protein metabolism, not elsewhere classified; I25.10 Atherosclerotic heart disease of native coronary artery without angina pectoris; E11.65 Type 2 diabetes mellitus with hyperglycemia; E66.01 Morbid (severe) obesity due to excess calories; J45.909 Unspecified asthma, uncomplicated; Z20.822 Contact with and (suspected) exposure to COVID-19; I10 Essential (primary) hypertension; Z88.8 Allergy status to other drugs, medicaments and biological substances; Z79.899 Other long term (current) drug therapy; Z79.01 Long term (current) use of anticoagulants; Z68.43 Body mass index [BMI] 50.0-59.9, adult
CPT/HCPCS: 36415; 71045; 71275; 76376; 80048; 80053; 80061; 80307; 82550; 82553; 82785; 83605; 83690; 83735; 83880; 84100; 84443; 84484; 85025; 85610-TC; 85651-TC; 85730-TC; 86713; 87040; 87081; 87205-TC; 87305; 87449; 93005; 94640; 94760; 99291; C1751; G0378; J1650; J1815; J1885; J1956; J2405; J2543; J2930; J7030; J7613; Q9967